=== PATIENT | female | born 2000 | race Caucasian/White ===

== ENCOUNTER 2024-07-13 16:16 | Outpatient (CLI) | payer BC, SELFPAY ==
--- NOTE | ~2024-07-13 | XR_ITS ---
EXAMINATION: XR abdomen/kub 1V DATE: 07/13/2024 16:31 INDICATION: Unspecified abdominal pain TECHNIQUE: A supine view of the abdomen on 2 radiographs was obtained. COMPARISON: None. FINDINGS: Moderate amount of stool scattered throughout the colon. No dilated loops of gas-filled bowel to sugg est obstruction. There is a 2-3 mm density potentially a renal stone projecting lateral to the left t ransverse process of L2. Lung bases are clear. Heart size is normal. Bones are unremarkable. IMPRESSION: 1. 2-3 mm possible left renal or proximal left ureteral stone. Correlate with urinalysis. Normal dayron l gas pattern. Reviewed, dictated and finalized at location A. IMPRESSION: 1. 2-3 mm possible left renal or proximal left ureteral stone. Correlate with u rinalysis. Normal bowel gas pattern.
--- NOTE | ~2024-07-13 | XR_ITS ---
EXAMINATION: XR chest 2V DATE: 07/13/2024 16:31 INDICATION: Chest pain TECHNIQUE: PA and lateral views of the chest were obtained. COMPARISON: Chest radiograph dated 10/06/2004 FINDINGS: The lungs are clear with no focal airspace opacities, pulmonary edema, pleural effusion or pneumothor ax. The cardiomediastinal silhouette is normal. Visualized bones and soft tissues are unremarkable. IMPRESSION: 1. Normal chest radiograph. Reviewed, dictated and finalized at location A. IMPRESSION: 1. Normal chest radiograph.
== END 2024-07-13 16:17 | disposition home or self-care (01) ==
LOC: MICIMG 16:18
PROVIDERS: PCP Physician Assistant; Visit Provider Physician Assistant
DX: R10.9 Unspecified abdominal pain (principal); M54.6 Pain in thoracic spine; N20.2 Calculus of kidney with calculus of ureter
CPT/HCPCS: 71046; 74018

== ENCOUNTER 2024-07-14 15:41 | Outpatient (CLI) | payer BC, SELFPAY ==
--- NOTE | ~2024-07-14 | CT_ITS ---
EXAMINATION: CT abdomen pelvis wo con DATE: 07/14/2024 15:53 INDICATION: Calculus of kidney and ureter TECHNIQUE: Computed tomography (CT) of the abdomen and pelvis was performed without intravenous contr ast. Automated exposure control and iterative reconstruction technique were employed. The dose-length product was 630.05 mGy-cm. COMPARISON: None. FINDINGS: Lower thorax: Unremarkable Liver: Normal. Biliary/Gallbladder: Gallbladder is normal. No bile duct dilation. Pancreas: No mass or duct dilation. Spleen: Normal. Adrenals:No mass. Kidneys: No suspicious mass, obstructing stone, or hydronephrosis. Punctate nonobstructing bilateral calculi. GI tract: No small or large bowel dilation. Normal appendix. Mesentery/Peritoneum: No ascites, mass, or free air. Retroperitoneum: No mass. Pelvis: 4.5 cm uterine fibroid. Normal ovaries. Normal urinary bladder. Soft Tissues: Soft tissues and body wall unremarkable. Bones: No acute osseous finding. IMPRESSION: No acute abdominopelvic process detected. Reviewed, dictated and finalized at location K.
== END 2024-07-14 15:42 | disposition home or self-care (01) ==
LOC: MICIMG 15:43
PROVIDERS: PCP Physician Assistant; Visit Provider Physician Assistant
DX: N20.2 Calculus of kidney with calculus of ureter (principal)
CPT/HCPCS: 74176

== ENCOUNTER 2025-08-15 18:00 | Emergency (ER) | payer BC, SELFPAY ==
--- NOTE | ~2025-08-15 | XR_ITS ---
EXAMINATION: XR knee LT min 4V DATE: 08/15/2025 18:27 INDICATION: 2 days of nontraumatic anterior left knee pain TECHNIQUE: Anteroposterior, posteroanterior, oblique and crosstable lateral views of the left knee were obtained COMPARISON: None. FINDINGS: Alignment is normal. No fracture. Joint spaces are normal. No joint effusion/layering lipohemarthrosis. Soft tissues are unremarkable. IMPRESSION: 1. Negative left knee radiographs. Reviewed, dictated and finalized at location A.
[2025-08-15 18:17] VITALS: BP 154/89; PULSE 90; RESP 16; TEMP 36.9; O2SAT 100
--- NOTE | 2025-08-15 18:58 | ED.LOWEXIN ---
HPI - Extremity Injury (Lower) General Chief Complaint: Extremity Injury, Lower Stated Complaint: L Knee Pain Time Seen by Provider: 08/15/25 18:40 Source: patient and RN notes reviewed Mode of arrival: ambulatory Limitations: no limitations History of Present Illness HPI Narrative: 25-year-old female Presents Express Care complaining left knee pain. Patient reports to 3 days ago which she noticed left knee pain after she was painting her house going up a ladder repetitively also be on her knees repetitively throughout the day. Patient says the pain is progressively gotten worse. Patient says the pain is worse with knee flexion. Patient denies any apparent injuries or falls. Patient has been doing rice therapy with some relief. Patient denies any numbness, tingling. Patient denies any significant past medical history. Related Data Home Medications ?Medication ?Instructions ?Recorded ?Confirmed ?Last Taken ?Type Birthcontrol 08/15/25 Unknown History Allergies Allergy/AdvReac Type Severity Reaction Status Date / Time Penicillins Allergy Intermediate Rash Verified 08/15/25 18:21 nickel Allergy Mild Unknown Verified 08/15/25 18:21 Review of Systems Review of Systems: CONSTITUTIONAL: Denies fever, chills, or sweats. EYES: Denies visual changes, redness, or discharge. ENT: Denies rhinorrhea, congestion, sore throat, or otalgia. CARDIOVASCULAR: Denies chest pain, palpitations, or edema. RESPIRATORY: Denies cough or dyspnea. GASTROINTESTINAL: Denies abdominal pain, nausea, vomiting, or diarrhea. GENITOURINARY: Denies dysuria or hematuria. SKIN: Denies rash, wound, or itching. MUSCULOSKELETAL: Denies back pain, joint pain, or myalgia. Positive for left knee pain NEUROLOGIC: Denies headache, numbness, or weakness. PSYCHIATRIC: Denies anxiety or depression. All other systems reviewed are negative, except as documented in HPI. PMFSH Comments At the time of my signature, I reviewed and agree with the nursing past medical, surgical, social, and family history. There is no relevant family history pertinent to the patient complaint. Exam Narrative: GENERAL: This is a well-nourished, well-developed adult, in no apparent distress. They are non ill-appearing, nontoxic appearing. HEAD: normocephalic, atraumatic. EYES: Sclera clear/white. Vision is grossly intact. Conjunctiva normal. Extraocular movement intact. EARS: External ears normal Hearing grossly intact. NOSE: External nose normal THROAT: Mucous membranes moist NECK: Neck supple CARDIOVASCULAR: Regular rate and rhythm RESPIRATORY: Respiratory rate normal, respiratory effort nonlabored, no respiratory distress NEURO: awake, alert, and oriented to person, place and time. There were no obvious focal neurologic abnormalities. EXTREMITIES: Left knee: No obvious deformity, injury, swelling, bruising, redness. Limited range of motion due to pain. Pain Elicited in the flexion, patient reports the pain near the anterior upper knee near the distal quadriceps. No bony tenderness. Tender to palpate your quadriceps tendon. Capillary refill less than 3 seconds. Left popliteal Pulse 2 +palpable. Normal sensation. Neurovascular status intact distal injury. No valgus or varus laxity. Negative anterior drawer test. Negative Santos's test BACK: Nontender without deformity. Course Course Emergency Course: Portions of this record may have been created with voice recognition software Level of Care: Express Care Visit Vital Signs Vital signs: Vital Signs Temperature 98.4 F 08/15/25 18:17 Pulse Rate 90 08/15/25 18:17 Respiratory Rate 16 08/15/25 18:17 Blood Pressure 154/89 H 08/15/25 18:17 Pulse Oximetry 100 08/15/25 18:17 Temperature 98.4 F 08/15/25 18:17 Pulse Rate 90 08/15/25 18:17 Respiratory Rate 16 08/15/25 18:17 Blood Pressure 154/89 H 08/15/25 18:17 Pulse Oximetry 100 08/15/25 18:17 Reviewed MDM - Extremity Injury (Lower) [facility] [place] Narrative Medical decision making narrative: X-ray left knee negative for any fracture or acute findings. Likely knee sprain. Patient given Davon wrap for compression. Discussed conservative management rice therapy. Advised follow-up with orthopedist the pain is persistent especially after 10 days. Discussed physical exam findings. Advised supportive measures and signs/symptoms to go to the ER. Pt is appropriate for outpt treatment and f/u. Differential Diagnosis Differential diagnosis: Likely acute internal derangement of knee and other (Knee sprain, knee contusion, quadrant tendinitis, patellar tendinitis, arthritis) Imaging Data Radiologist's impression: ITS Impressions Knee X-Ray 08/15/25 18:31 IMPRESSION: 1. Negative left knee radiographs. Critical Care Time Critical Care Time Critical Care Time: No Discharge Plan Discharge Clinical Impression: Knee pain, left Qualifiers: Chronicity: acute Qualified Code(s): M25.562 - Pain in left knee Patient Disposition: Home Condition: Stable Instructions: Knee Sprain (ED) Additional Instructions: The x-ray left knee is negative for any fractures or acute findings. Rest and elevate the leg; bear weight as tolerated Apply ice 15-20 minute intervals for the 1st 48 hours then switch to heat 15-20 minutes at a time few times a day. Keep it wrapped with DAVON or use a knee brace You may take ibuprofen 600 mg to 800 mg every 6-8 hours. Do not exceed more than 800 mg of ibuprofen per dose. Do not exceed more than 3200 mg ibuprofen in a day. You may take up to 1000 mg Tylenol every 6-8 hours. Do not exceed 1000 mg per dose, do exceed more than 4000 mg of Tylenol in a day. Follow up with your primary care provider or an orthopedist in 7-10 days especially if pain is persisting. Patient Language: Azeri Prescriptions: No Action Birthcontrol Follow-up/Referrals: Param Brandon MD [Physician, Orthopedics] Jasmin,RAEGAN Oconnor [Primary Care Provider, Unknown] Stand Alone Forms: Work/School Release IP Time of Disposition: 18:55
== END 2025-08-15 19:00 | disposition home or self-care (01) ==
PROVIDERS: PCP Physician Assistant
DX: M25.562 Pain in left knee (principal)
CPT/HCPCS: 73564; 99213; G0463